=== PATIENT | female | born 1955 | race Caucasian/White ===

== ENCOUNTER → 2016-09-17 | Outpatient (CLI) | payer OTHER, MEDICARE ==
[~2016-09-17] MED LIST: ALIR75PE IM; ASCO10004 PO; ASPI-515 PO; COLE625T2 PO; DAPA10TA PO; DIVA500T2 PO; GLIM4TAB2 PO; INSU100V8 SQ; LOSA100T6 PO; METF10002 PO; MULT-658 PO; PRIM250T PO
== END | disposition home or self-care (01) ==
LOC: PETCFH 13:22
PROVIDERS: ATTEND Orthopaedic Surgery Adult Reconstructive Orthopaedic Surgery
DX: Z47.1 Aftercare following joint replacement surgery (principal); Z96.651 Presence of right artificial knee joint
CPT/HCPCS: 78315; A9503

== ENCOUNTER 2017-10-19 05:43 | Inpatient (IN) | payer OTHER, MEDICARE ==
[~2017-10-19] VITALS: Ht 170.2 cm; Wt 106.6 kg
[~2017-10-19 05:43] MED LIST changes: +CALC1CAP8 PO; +CHOL200024 PO; +COLE625T12 PO; -COLE625T2 PO; +FENO48TA5 PO; +INSU3INS2 SQ; +ROSU10TA PO
[2017-10-19] MEDS ORDERED: LACTATED RINGERS 1,000 ML IV SCH (06:13)
[2017-10-19] MEDS ORDERED: FENTANYL PF 250 MCG/5ML ONE (06:22)
[2017-10-19] MEDS ORDERED: TRANEXAMIC ACID 100 MG/ML, 10ML ONE (06:22)
[2017-10-19] MEDS ORDERED: MIDAZOLAM 1 MG/ML, 2ML ONE (06:22)
[2017-10-19] MEDS ORDERED: KETOROLAC 60 MG/2 ML ONE (06:22)
[2017-10-19] MEDS ORDERED: SUCCINYLCHOLINE 20 MG/ML, 10ML ONE (06:23)
[2017-10-19] MEDS ORDERED: ROCURONIUM 10MG/ML,5ML ONE (06:23)
[2017-10-19] MEDS ORDERED: ROPIvacaine/PF 0.2%, 20 ML ONE (06:23)
[2017-10-19] MEDS ORDERED: EPINEPHRINE 1 MG/ML, 1ML ONE (06:23)
[2017-10-19] MEDS ORDERED: PROPOFOL 10 MG/ML, 20ML ONE (06:23)
[2017-10-19] MEDS ORDERED: NEOSPORIN OINT, 15GM ONE (06:23)
[2017-10-19] MEDS ORDERED: LIDOCAINE-MPF 2% ,5ML ONE (06:24)
[2017-10-19] MEDS ORDERED: CEFAZOLIN 1,000 MG ONE ×2 (06:24)
[2017-10-19] MEDS ORDERED: SODIUM CHLORIDE 0.9% PF 10ML ONE (06:24)
[2017-10-19] MEDS ORDERED: METOCLOPRAMIDE 10MG TABLET PO ONE (06:30)
[2017-10-19] MEDS ORDERED: ACETAMINOPHEN 500 MG TABLET PO ONE (06:30)
[2017-10-19] MEDS ORDERED: GABAPENTIN 300 MG CAPSULE PO ONE (06:30)
[2017-10-19] MEDS ORDERED: DIAZEPAM 5 MG TABLET PO ONE (06:30)
[2017-10-19] MEDS ORDERED: FAMOTIDINE 20 MG TABLET PO ONE (06:30)
[2017-10-19] MEDS ORDERED: KETAMINE 10 MG/ML, 20ML ONE (06:32)
[2017-10-19 06:54] VITALS: BP 148/77
[2017-10-19] MEDS ORDERED: CLINDAMYCIN 150 MG/ML, 6ML ONE (06:55)
[2017-10-19] MEDS ORDERED: VANCOMYCIN 1,000 MG ONE (07:13)
[2017-10-19] MEDS ORDERED: DIAZEPAM 5 MG/ML, 2ML IVPush PRN (08:00)
[2017-10-19] MEDS ORDERED: ALBUTEROL SULFATE 2.5 MG/3 ML NPPB PRN (08:00)
[2017-10-19] MEDS ORDERED: OXYcodone 5 MG/5 ML ORAL.SOL UDC PO PRN (08:00)
[2017-10-19] MEDS ORDERED: PROMETHAZINE 25 MG/ML, 1ML IV PRN (08:00)
[2017-10-19] MEDS ORDERED: FENTANYL PF 100 MCG/2ML IV PRN (08:00)
[2017-10-19] MEDS ORDERED: TRANEXAMIC ACID 1,000 MG in SODIUM CHLORIDE 0.9% 100 ML IVPB ONE (08:15)
[2017-10-19] MEDS ORDERED: OXYcodone 5 MG/5 ML ORAL.SOL UDC ONE (08:30)
[2017-10-19] MEDS ORDERED: DIAZEPAM 5 MG TABLET PO PRN (08:30)
[2017-10-19] MEDS ORDERED: ALUMINUM/MAG/SIMETHICONE 30 ML UDC PO PRN (08:30)
[2017-10-19] MEDS ORDERED: [UNRECOGNIZED DRUG - OTHER] SQ SCH (08:30)
[2017-10-19] MEDS ORDERED: SENNA/DOCUSATE TABLET PO PRN (08:30)
[2017-10-19] MEDS ORDERED: DIPHENHYDRAMINE 50 MG CAPSULE PO PRN (08:30)
[2017-10-19] MEDS ORDERED: MAGNESIUM HYDROXIDE 8%, 30ML UDC PO PRN (08:30)
[2017-10-19] MEDS ORDERED: BISACODYL 10 MG SUPP PR PRN (08:30)
[2017-10-19] MEDS ORDERED: morphine SULFATE 10 MG/ML, 1ML ONE (08:30)
[2017-10-19] MEDS ORDERED: morphine SULFATE 10 MG/ML, 1ML IV PRN (08:30)
[2017-10-19] MEDS ORDERED: ACETAMINOPHEN 650 MG/20.3 ML UDC PO PRN (08:30)
[2017-10-19] MEDS ORDERED: OXYcodone IR 5MG TABLET PO PRN (08:30)
[2017-10-19] MEDS: MORPHINE SULFATE 4 MG/ML, 1ML IVPush PRN ×4 (08:34→09:13)
[2017-10-19] MEDS: DOCUSATE 100 MG CAPSULE PO SCH ×2 (09:00→21:00)
[2017-10-19] MEDS: COLESEVELAM 625 MG TABLET PO SCH ×2 (09:00→21:46)
[2017-10-19] MEDS: (Dapagliflozin Propanediol (Farxiga) 1 TAB) HOMEMEDPO SCH (09:00)
[2017-10-19] MEDS ORDERED: MORPHINE SULFATE 4 MG/ML, 1ML ONE (09:11)
[2017-10-19] MEDS ORDERED: ACETAMINOPHEN 325 MG TABLET PO PRN (09:30)
[2017-10-19] MEDS ORDERED: ONDANSETRON ODT 4 MG ONE (09:46)
[2017-10-19] MEDS: ONDANSETRON 4 MG TABLET PO PRN ×2 (09:48→18:19)
[2017-10-19] MEDS: PRIMIDONE 250 MG TABLET PO SCH (10:00)
[2017-10-19] MEDS: DIVALPROEX 500 MG TABLET.DR PO SCH (10:30)
[2017-10-19] MEDS: SODIUM CHLORIDE 0.9% 1,000 ML IV SCH ×2 (12:35→23:00)
[2017-10-19 13:47] VITALS: BP 128/61
[2017-10-19] MEDS: INSULIN REGULAR 100 UNITS/ML, 3ML VIAL SQ-INSULIN SCH ×3 (14:09→21:00)
[2017-10-19] MEDS: CLINDAMYCIN PMX 900MG/50ML 50 ML IVPB SCH ×3 (14:49→22:24)
[2017-10-19] MEDS ORDERED: DEXAMETHASONE 4 MG/ML, 1ML ONE (15:16)
[2017-10-19] MEDS ORDERED: NEOSTIGMINE 1 MG/ML, 10ML ONE (15:16)
[2017-10-19] MEDS ORDERED: GLYCOPYRROLATE 0.2MG/1ML, 5ML ONE (15:16)
[2017-10-19] MEDS ORDERED: ONDANSETRON 2MG/ML, 2ML ONE (15:16)
[2017-10-19] MEDS: metFORMIN 500 MG TABLET PO SCH (18:19)
[2017-10-19 19:50] VITALS: BP 131/72
[2017-10-19] MEDS ORDERED: PRIMIDONE 250 MG TABLET PO SCH (21:00)
[2017-10-19] MEDS ORDERED: ATORVASTATIN 20 MG TABLET PO SCH (21:00)
[2017-10-19] MEDS ORDERED: DIVALPROEX 500 MG TAB.ER.24H PO SCH (21:00)
[2017-10-19] MEDS ORDERED: DIVALPROEX 500 MG TABLET.DR PO SCH (21:00)
[2017-10-19] MEDS ORDERED: PRIMIDONE 50 MG TABLET ONE (21:21)
[2017-10-19] MEDS: FENOFIBRATE 54 MG TABLET PO SCH (21:45)
[2017-10-20 00:01] VITALS: BP 126/60
[2017-10-20 04:09] VITALS: BP 139/65
[2017-10-20] MEDS: INSULIN REGULAR 100 UNITS/ML, 3ML VIAL SQ-INSULIN SCH ×3 (06:32→17:23)
[2017-10-20] MEDS: HYDROcodone/APAP 5/325 TABLET PO PRN ×2 (06:32→19:52)
[2017-10-20] MEDS: ASPIRIN 81 MG TABLET EC PO SCH ×2 (06:32→17:32)
[2017-10-20 07:25] VITALS: BP 136/60
[2017-10-20] MEDS ORDERED: PRIMIDONE 50 MG TABLET ONE (08:48)
[2017-10-20] MEDS: SODIUM CHLORIDE 0.9% 1,000 ML IV SCH (09:00)
[2017-10-20] MEDS: (Dapagliflozin Propanediol (Farxiga) 1 TAB) HOMEMEDPO SCH (09:00)
[2017-10-20] MEDS: DOCUSATE 100 MG CAPSULE PO SCH (09:07)
[2017-10-20] MEDS: PRIMIDONE 250 MG TABLET PO SCH (09:08)
[2017-10-20] MEDS: COLESEVELAM 625 MG TABLET PO SCH (09:09)
[2017-10-20] MEDS: FENOFIBRATE 54 MG TABLET PO SCH (09:09)
[2017-10-20] MEDS: KETOROLAC 30 MG/1 ML IV SCH ×2 (09:09→17:32)
[2017-10-20] MEDS: metFORMIN 500 MG TABLET PO SCH ×2 (09:09→17:32)
[2017-10-20] MEDS: DIVALPROEX 500 MG TABLET.DR PO SCH (09:09)
[2017-10-20 13:41] VITALS: BP 145/73
[2017-10-20 18:52] VITALS: BP 135/78
[2017-10-20] MEDS ORDERED: HYDR-3237 PO (19:34)
== END 2017-10-20 20:10 | disposition home health service (06) | DRG 468 ==
LOC: ORIP 05:43 → 4NOR 09:33
PROVIDERS: ADMIT Orthopaedic Surgery Adult Reconstructive Orthopaedic Surgery; ATTEND Orthopaedic Surgery Adult Reconstructive Orthopaedic Surgery
PROC: 0SRC0J9 Replacement of Right Knee Joint with Synthetic Substitute, Cemented, Open Approach (ICD-10-PCS; 2017-10-19)
PROC: 0SPC0JC Removal of Synthetic Substitute from Right Knee Joint, Patellar Surface, Open Approach (ICD-10-PCS; principal; 2017-10-19 07:00)
PROC: 5A09357 Assistance with Respiratory Ventilation, Less than 24 Consecutive Hours, Continuous Positive Airway Pressure (ICD-10-PCS; 2017-10-20)
DX: T84.092A Other mechanical complication of internal right knee prosthesis, initial encounter (principal); Z88.1 Allergy status to other antibiotic agents; E11.9 Type 2 diabetes mellitus without complications; I10 Essential (primary) hypertension; G40.909 Epilepsy, unspecified, not intractable, without status epilepticus; G47.30 Sleep apnea, unspecified; Z96.651 Presence of right artificial knee joint; Y79.2 Prosthetic and other implants, materials and accessory orthopedic devices associated with adverse incidents; Y83.8 Other surgical procedures as the cause of abnormal reaction of the patient, or of later complication, without mention of misadventure at the time of the procedure; Y92.89 Other specified places as the place of occurrence of the external cause
CPT/HCPCS: 36415; J3490; S0077; 82962; 85014; 85018; 86850; 86900; C1713; J0171; J0690; J1100; J1815; J1885; J2250; J2405; J2704; J2710; J2795; J3010; J3360; J3370; Q0162; C1776; J0330; J7030; J7120